=== PATIENT | male | born 1965 | race Caucasian/White ===

== ENCOUNTER → 2016-04-27 | Outpatient (CLI) | payer BC ==
[~2016-04-27] MED LIST: AMOXICILLIN/CLA1 TA1 PO; CYMBALTA 60MG60 MG PO; LEVAQUIN 750MG750 M1 PO; NEOSPORIN1 OIN TP; NORCO 325 MG-51 TAB PO; PREDNISONE20 MG PO; VALTREX 50500 MG/TAB PO
== END ==
LOC: BHSO 14:55
DX: F41.1 Generalized anxiety disorder (principal)

== ENCOUNTER → 2016-10-12 | Outpatient (CLI) | payer BC | LOC: BHSO 14:57 | DX: F41.1 Generalized anxiety disorder (principal) ==

== ENCOUNTER → 2016-12-31 | Outpatient (CLI) | payer BC | LOC: COL.RAD 09:04 | DX: S73.102A Unspecified sprain of left hip, initial encounter (principal); M70.72 Other bursitis of hip, left hip; M87.9 Osteonecrosis, unspecified; Z96.641 Presence of right artificial hip joint | CPT/HCPCS: A9585; Q9967 ==

== ENCOUNTER → 2017-03-29 | Outpatient (CLI) | payer BC | LOC: BHSO 14:50 | DX: F41.1 Generalized anxiety disorder (principal) | CPT/HCPCS: G0463 ==

== ENCOUNTER → 2017-09-29 | Outpatient (CLI) | payer BC | LOC: BHSO 10:57 | DX: F33.41 Major depressive disorder, recurrent, in partial remission (principal) | CPT/HCPCS: G0463 ==

== ENCOUNTER → 2018-03-28 | Outpatient (CLI) | payer BC | LOC: BHSO 11:09 | DX: F41.1 Generalized anxiety disorder (principal) | CPT/HCPCS: G0463 ==

== ENCOUNTER → 2018-09-26 | Outpatient (CLI) | payer BC | LOC: BHSO 10:51 | DX: F41.1 Generalized anxiety disorder (principal) | CPT/HCPCS: G0463 ==

== ENCOUNTER → 2019-04-17 | Outpatient (CLI) | payer BC | LOC: BHSO 09:07 | DX: F41.1 Generalized anxiety disorder (principal) | CPT/HCPCS: G0463 ==

== ENCOUNTER → 2019-10-16 | Outpatient (CLI) | payer BC | LOC: BHSO 10:55 | DX: F90.0 Attention-deficit hyperactivity disorder, predominantly inattentive type (principal) | CPT/HCPCS: G0463 ==